=== PATIENT | male | born 1980 | race Caucasian/White ===

== ENCOUNTER → 2017-12-07 | Outpatient (CLI) | payer OTHER ==
[~2017-12-07] MED LIST: ALB6.7R INH; AMLO2.5T74 PO; CETI-285 PO; CYCL10TA29 PO; FLUT16SP19 NS; FLUT9.9S; HYDR-385 PO; IBUP-136 PO; KET10 PO; LISI-362 PO; LOR5/325 PO; LORA10CA3 PO; METH4TAB66 PO; METO100T20 PO; METO50TA19 PO; NO ROUTINE MEDS; OLOOD OU; OSE75 PO; PANT40TA65 PO; PRED20TA6 PO; TRI40I IM; TRI40I INTRA-ART
--- NOTE | 2017-12-07 17:25 | RADIOLOGY IMAGING REPORT ---
FACILITY: [facility] [place] PATIENT NAME: Carl Mancilla : 1980 MR: [id number] V: [id number] EXAM DATE: ORDERING PHYSICIAN: ALANNAH REGALADO TECHNOLOGIST: Location: [facility] Patient: Carl Mancilla : 1980 Visit/Account:[id number] Date of Sevice: 12/07/2017 Exam type: CHEST PA AND LAT History: rt. sided back pain Comparison: 11/13/2015. Findings: Both lungs are well-expanded and clear. There is no focal consolidation, pleural effusion or pneumoth orax. Heart size is normal. The osseous structures are unremarkable. IMPRESSION: 1. No acute cardiopulmonary disease. Report Dictated By: Brayden Jaimes MD at 12/07/2017 5:20 PM Report E-Signed By: Brayden Jaimes MD at 12/07/2017 5:21 PM WSN:[id number]
== END ==
LOC: RAD 15:45
PROVIDERS: ATTEND Internal Medicine
DX: M54.9 Dorsalgia, unspecified (principal)
CPT/HCPCS: 71046

== ENCOUNTER → 2017-12-08 | Outpatient (CLI) | payer OTHER ==
[2017-12-08 16:33] LABS: PLATELET COUNT, AUTOMATED 285 K/uL (150-450)
[2017-12-08 16:55] LABS: LDL CHOLESTEROL 56 mg/dl
== END ==
LOC: LAB 16:20
PROVIDERS: ATTEND Internal Medicine
DX: G47.33 Obstructive sleep apnea (adult) (pediatric) (principal); I10 Essential (primary) hypertension; R00.0 Tachycardia, unspecified
CPT/HCPCS: 36415; 81001; 82040; 82247; 82310; 82374; 82435; 82465; 82565; 82947; 83718; 84075; 84132; 84155; 84295; 84443; 84450; 84460; 84478; 84520; 85025

== ENCOUNTER → 2018-07-12 | Outpatient (REF) | payer OTHER ==
[~2018-07-12] MED LIST changes: -AMLO2.5T74 PO; +AMLO2.5T78 PO; +AZIT-17 PO
[2018-07-12 16:37] LABS: PLATELET COUNT, AUTOMATED 310 K/uL (150-450)
== END ==
PROVIDERS: ATTEND Nurse Practitioner Family
DX: R11.10 Vomiting, unspecified (principal)
CPT/HCPCS: 36415; 82040; 82247; 82310; 82374; 82435; 82565; 82947; 84075; 84132; 84155; 84295; 84450; 84460; 84520; 85025